=== PATIENT | female | born 1935 | race Two or more races ===

== ENCOUNTER 2024-01-07 09:58 | Inpatient (IN) | payer MEDICARE, OTHER ==
[~2024-01-07] VITALS: Ht 160 cm; Wt 63.5 kg
[2024-01-07 10:47] LABS: BASOPHILS % (AUTO) 0.3 % (0.0-2.0); EOSINOPHILS # (AUTO) 0.1 K/uL (0.0-0.7); EOSINOPHILS % (AUTO) 1.8 % (0.0-6.0); HEMATOCRIT 36 % (33-45); HEMOGLOBIN 11.7 g/dL (11.5-14.8); LYMPHOCYTES # (AUTO) 2.2 K/uL (0.8-4.8); LYMPHOCYTES % (AUTO) 30.6 % (20.0-44.0); MEAN CORPUSCULAR HEMOGLOBIN 33 PG (26.0-33.0); MEAN CORPUSCULAR HGB CONC 32 g/dl (31.0-36.0); MEAN CORPUSCULAR VOLUME 101 fL (82-100); MONOCYTES # (AUTO) 0.7 K/uL (0.1-1.30); MONOCYTES % (AUTO) 9.1 % (2.0-12.0); NEUTROPHILS # (AUTO) 4.2 K/uL (1.8-8.9); NEUTROPHILS % (AUTO) 58.2 % (43.0-81.0); PLATELET COUNT (AUTO) 178 K/uL (150-450); RED BLOOD CELL COUNT(AUTO) 3.58 MIL/uL (4.0-5.2); RED CELL DISTRIBUTION WIDTH 14.4 % (11.5-15.0); WHITE BLOOD COUNT (AUTO) 7.2 K/uL (4.3-11.0)
[2024-01-07] MEDS ORDERED: diphenhydrAMINE HCL 50 MG/ML VIAL ONE (10:54)
[2024-01-07] MEDS ORDERED: DIVA250T4 PO (10:57)
[2024-01-07] MEDS ORDERED: MAGN400O6 PO (10:57)
[2024-01-07] MEDS ORDERED: ACET325T53 PO (10:57)
[2024-01-07] MEDS ORDERED: AMLO-212 PO (10:57)
[2024-01-07] MEDS ORDERED: VENL37.510 PO (10:57)
[2024-01-07] MEDS ORDERED: SENN-291 PO (10:57)
[2024-01-07] MEDS ORDERED: QUET25TA PO ×2 (10:57)
[2024-01-07] MEDS ORDERED: MULT-213 PO (10:57)
[2024-01-07 11:02] LABS: CALCIUM, SERUM 10.4 mg/dL (8.5-10.1); CARBON DIOXIDE 25 mmol/L (21-32); CHLORIDE 105 mmol/L (98-107); CREATININE 0.7 mg/dL (0.6-1.3); GLUCOSE 77 mg/dL (74-106); POTASSIUM 4.9 mmol/L (3.5-5.1); SODIUM SERUM 138 mmol/L (136-145); UREA NITROGEN, BLOOD 20 mg/dL (7-18)
[2024-01-07] MEDS: diphenhydrAMINE HCL 50 MG/ML VIAL IV ONE (11:02)
[2024-01-07 11:17] LABS: ALANINE AMINOTRANSFERASE 13 U/L (12-78); ALBUMIN 2.8 g/dL (3.4-5.0); ALCOHOL, BLOOD < 3 mg/dL (0-10); ALKALINE PHOSPHATASE 62 U/L (46-116); ASPARTATE AMINOTRANSFERASE 21 U/L (15-37); BILIRUBIN,DIRECT 0.1 mg/dL (0.0-0.2); BILIRUBIN,TOTAL 0.4 mg/dL (0.2-1.0); TOTAL PROTEIN, SERUM 6.5 g/dL (6.4-8.2)
[2024-01-07 11:21] LABS: ACETAMINOPHEN 0 ug/ml (10-30); SALICYLATE 1.2 mg/dL (2.8-20.0)
[2024-01-07 12:08] LABS: APPEARANCE,URINE CLEAR (CLEAR); BILIRUBIN,URINE NEGATIVE (NEGATIVE); BLOOD, URINE 2+ Ery/uL (NEGATIVE); COLOR,URINE YELLOW (YELLOW); KETONES,URINE NEGATIVE (NEGATIVE); LEUKOCYTE ESTERASE ,URINE NEGATIVE (NEGATIVE); NITRITE, URINE NEGATIVE (NEGATIVE); PROTEIN,URINE NEGATIVE (NEGATIVE); UGLUCOSE NEGATIVE (NEGATIVE); UROBILINOGEN,URINE 0.2 EU/dL (0.2)
[2024-01-07 12:19] LABS: AMPHETAMINE, URINE NEGATIVE (NEGATIVE); BARBITURATE, URINE NEGATIVE (NEGATIVE); BENZODIAZEPINE, URINE NEGATIVE (NEGATIVE); CANNABINOID, URINE NEGATIVE (NEGATIVE); COCCAINE, URINE NEGATIVE (NEGATIVE); OPIATE, URINE NEGATIVE (NEGATIVE); PHENCYCLIDINE SCREEN,URINE NEGATIVE (NEGATIVE)
[2024-01-07 12:29] LABS: ADD URINE CULTURE NO; BACTERIA,URINE Few /HPF (None Seen); SQUAMOUS EPITHELIAL CELL,UR Rare /HPF (None Seen); WBC,URINE 0-2 /HPF (0-3)
[2024-01-07] MEDS ORDERED: QUETIAPINE FUMARATE 25 MG TABLET PO PRN (15:00)
[2024-01-07] MEDS ORDERED: ACETAMINOPHEN 325 MG TABLET PO PRN ×2 (15:00→15:30)
[2024-01-07] MEDS ORDERED: MAGNESIUM HYDROXIDE 30 ML UDC PO PRN ×2 (15:00→15:30)
[2024-01-07] MEDS ORDERED: MAG HYDROX/AL HYDROX/SIMETH 30 ML UDC PO PRN (15:00)
[2024-01-07] MEDS: BLOOD SUGAR DIAGNOSTIC 1 EACH STRIP IN ONE (15:26)
[2024-01-07 16:00] VITALS: BP 175/91; TEMP 98; O2SAT 98
[2024-01-07] MEDS ORDERED: DIVALPROEX SODIUM 250 MG TABLET.DR PO SCH (17:00)
[2024-01-07] MEDS: DIVALPROEX SODIUM 125 MG TABLET.DR PO SCH (17:40)
[2024-01-07 20:00] VITALS: BP 141/84; TEMP 98.1; O2SAT 98
[2024-01-07] MEDS: OLANZAPINE ZYDIS 5 MG TAB.RAPDIS PO SCH (21:48)
[2024-01-07] MEDS ORDERED: QUETIAPINE FUMARATE 25 MG TABLET PO SCH (22:00)
[2024-01-08] MEDS: MULTIVITAMIN/LUTEIN/MINERALS 1 TAB PO SCH (09:00)
[2024-01-08] MEDS ORDERED: QUETIAPINE FUMARATE 25 MG TABLET PO SCH (09:00)
[2024-01-08] MEDS: AMLODIPINE BESYLATE 5 MG TABLET PO SCH (09:00)
[2024-01-08] MEDS ORDERED: VENLAFAXINE 37.5 MG TABLET PO SCH (09:00)
[2024-01-08] MEDS: SENNOSIDES/DOCUSATE SODIUM 1 UDTAB TABLET PO SCH (09:00)
[2024-01-08 16:00] VITALS: BP 128/64; TEMP 98; O2SAT 96
[2024-01-08 20:48] VITALS: BP 121/91; TEMP 97; O2SAT 99
[2024-01-08 22:00] VITALS: BP 121/91; TEMP 97; O2SAT 99
[2024-01-09 21:14] VITALS: BP 140/69; TEMP 98.1; O2SAT 95
[2024-01-09] MEDS: ZOLPIDEM TARTRATE 5 MG TABLET PO PRN (22:26)
[2024-01-10] MEDS: SENNOSIDES/DOCUSATE SODIUM 1 TAB TABLET PO SCH (08:47)
[2024-01-10 21:00] VITALS: BP 108/77; TEMP 98; O2SAT 100
[2024-01-10] MEDS: MIRTAZAPINE 15 MG TABLET PO SCH (21:36)
[2024-01-11 08:00] VITALS: BP 112/95; TEMP 98.7; O2SAT 96
[2024-01-11 16:00] VITALS: BP 125/79; TEMP 98.7; O2SAT 100
[2024-01-11 20:46] VITALS: BP 134/79; TEMP 97.8; O2SAT 98
[2024-01-12 08:00] VITALS: BP 125/90; TEMP 98.9; O2SAT 99
[2024-01-12 16:00] VITALS: BP_SYST 104; BP_SYST 122; BP_DIAS 69; BP_DIAS 72; TEMP 98.1; TEMP 98.6; O2SAT 97
[2024-01-13] MEDS: OLANZAPINE 10 MG VIAL IM ONE (07:58)
[2024-01-13] MEDS: OLANZAPINE 10 MG VIAL IM PRN (22:02)
[2024-01-14 08:00] VITALS: BP 118/100; TEMP 97.8; O2SAT 94
[2024-01-14 16:00] VITALS: BP 110/80; TEMP 98; O2SAT 97
[2024-01-15 08:00] VITALS: BP 137/90; TEMP 97.6; O2SAT 98
[2024-01-15] MEDS: DIVALPROEX SODIUM 125 MG TABLET.DR PO SCH (13:28)
[2024-01-15 16:00] VITALS: BP 129/81; TEMP 98.6; O2SAT 95
[2024-01-15 20:00] VITALS: BP 129/93; TEMP 97.7; O2SAT 95
[2024-01-16 08:00] VITALS: BP 137/76; TEMP 98; O2SAT 98
[2024-01-16 16:00] VITALS: BP 116/67; TEMP 98.1; O2SAT 97
[2024-01-16] MEDS ORDERED: OLANZAPINE 10 MG VIAL IM PRN (16:30)
[2024-01-16 20:21] VITALS: BP 138/83; TEMP 97.9; O2SAT 95
[2024-01-16] MEDS: OLANZAPINE ZYDIS 5 MG TAB.RAPDIS PO SCH (21:04)
[2024-01-17 08:00] VITALS: BP 104/67; TEMP 97.9; O2SAT 98
[2024-01-17 16:00] VITALS: BP 116/71; TEMP 98.6; O2SAT 98
[2024-01-17 20:30] VITALS: BP 109/67; TEMP 98.2; O2SAT 98
[2024-01-18 16:00] VITALS: BP 128/74; TEMP 98.1; O2SAT 98
[2024-01-18 20:38] VITALS: BP 123/67; TEMP 97.9; O2SAT 99
[2024-01-18] MEDS: OLANZAPINE ZYDIS 5 MG TAB.RAPDIS PO SCH (21:24)
[2024-01-19 08:00] VITALS: BP 129/84; TEMP 98.1; O2SAT 97
[2024-01-19 16:00] VITALS: BP 120/68; TEMP 98; O2SAT 99
[2024-01-19 20:00] VITALS: BP 129/70; TEMP 97.9; O2SAT 98
[2024-01-19] MEDS: OLANZAPINE 10 MG VIAL IM PRN (23:35)
[2024-01-20 08:00] VITALS: BP 119/77; TEMP 97.7; O2SAT 100
[2024-01-20 16:00] VITALS: BP 120/64; TEMP 98.6; O2SAT 98
[2024-01-20 20:00] VITALS: BP 123/73; TEMP 98.6; O2SAT 95
[2024-01-21 08:00] VITALS: BP 137/77; TEMP 98; O2SAT 95
[2024-01-21 16:00] VITALS: BP 135/69; TEMP 98; O2SAT 98
[2024-01-22 08:00] VITALS: BP 113/66; TEMP 97.7; O2SAT 94
[2024-01-22 16:00] VITALS: BP 116/63; TEMP 98.1; O2SAT 96
[2024-01-22 20:25] VITALS: BP 120/64; TEMP 98; O2SAT 94
[2024-01-23 08:00] VITALS: BP 122/66; TEMP 98.2; O2SAT 97
[2024-01-23 16:00] VITALS: BP 113/57; TEMP 98.6; O2SAT 96
[2024-01-23 20:42] VITALS: BP 115/66; TEMP 98; O2SAT 96
== END 2024-01-24 15:50 | DRG 885 ==
LOC: ER 10:29 → GPS 13:31
PROVIDERS: ADMIT Psychiatry & Neurology Psychiatry; ATTEND Student in an Organized Health Care Education/Training Program
DX: F29 Unspecified psychosis not due to a substance or known physiological condition (principal); F03.93 Unspecified dementia, unspecified severity, with mood disturbance; F03.911 Unspecified dementia, unspecified severity, with agitation; E44.0 Moderate protein-calorie malnutrition; Z79.899 Other long term (current) drug therapy; I10 Essential (primary) hypertension; E86.0 Dehydration; R79.89 Other specified abnormal findings of blood chemistry; E88.09 Other disorders of plasma-protein metabolism, not elsewhere classified; Z91.148 Patient's other noncompliance with medication regimen for other reason
CPT/HCPCS: 36415; 80048-TC; 80076-TC; 81001; 82962-TC; 85025-TC; 87081-TC; 97112-TC; 97530-TC; G0480; J1200; J3490